=== PATIENT | male | born 1955 | race Caucasian/White ===

== ENCOUNTER 2017-08-11 12:23 | Outpatient (CLI) | payer OTHER ==
--- NOTE | 2017-08-11 15:27 | XRAY Report ---
CHEST TWO VIEWS: HISTORY: Inspiratory chest pain. FINDINGS: Two views of the chest are interpreted without comparison. The heart size is normal. The lungs are clear. There is no pleural fluid or pneumothorax. Bony structures are unremarkable. IMPRESSION: NEGATIVE TWO VIEW CHEST X-RAY. TD: 08/11/2017 15:27
== END 2017-08-11 12:24 | disposition home or self-care (01) ==
LOC: DI 12:23
PROVIDERS: ATTEND Family Medicine
DX: J18.1 Lobar pneumonia, unspecified organism (principal)
CPT/HCPCS: 71046

== ENCOUNTER 2018-09-17 14:04 | Outpatient (CLI) | payer OTHER | END 2018-09-17 14:05 | disposition short-term general hospital (02) | LOC: EMS 14:04 | PROVIDERS: ATTEND Surgery | DX: S06.9X1A Unspecified intracranial injury with loss of consciousness of 30 minutes or less, initial encounter (principal); M54.9 Dorsalgia, unspecified; M25.512 Pain in left shoulder; W11.XXXA Fall on and from ladder, initial encounter; Y92.009 Unspecified place in unspecified non-institutional (private) residence as the place of occurrence of the external cause | CPT/HCPCS: A0425; A0427 ==

== ENCOUNTER 2022-03-09 09:55 | Outpatient (CLI) | payer OTHER ==
--- NOTE | 2022-03-09 11:26 | XRAY Report ---
PROCEDURE: Hand 3 View BILAT INDICATIONS: BILATERAL HAND PX TECHNIQUE: 3 views of both hands acquired. COMPARISON: None. FINDINGS: Bones: No acute fractures or dislocations. No suspicious bony lesions. Mild strandy changes are se en at the first carpometacarpal joints bilaterally with joint space narrowing and subchondral scleros is. Mild triscaphe and radiocarpal osteoarthrosis. Mild scattered degenerative changes in the fingers are most notable at the fifth distal interphalangeal joints bilaterally. No focal osseous erosion. N o juxta-articular osteopenia. Soft tissues: No suspicious soft tissue calcifications. No suspicious nodular soft tissue swelling. IMPRESSION: Mild bilateral osteoarthrosis. No radiographic signs of an inflammatory arthritis. Reviewed by: Slim Mccauley MD on 03/09/2022 11:24 AM PDT Approved by: Slim Mccauley MD on 03/09/2022 11:24 AM PDT Station ID: [id number]
== END 2022-03-09 09:56 | disposition home or self-care (01) ==
LOC: DI.N 09:55
PROVIDERS: ATTEND Internal Medicine
DX: M19.041 Primary osteoarthritis, right hand (principal); M19.042 Primary osteoarthritis, left hand

== ENCOUNTER 2023-05-18 08:00 | Outpatient (CLI) | payer OTHER ==
[2023-05-18 21:13] LABS: INFLUENZA A- RESP PCR PANEL NOT DETECTED; INFLUENZA B - RESP PCR PANEL NOT DETECTED; RSV- RESP PCR PANEL NOT DETECTED; SARS-CoV-2 -RESP PCR PANEL NOT DETECTED
== END 2023-05-18 23:59 | disposition home or self-care (01) ==
LOC: LAB.N 08:00
PROVIDERS: ATTEND Specialist
DX: R05.9 Cough, unspecified (principal)
CPT/HCPCS: 87637